=== PATIENT | male | born 1995 | race Caucasian/White ===

== ENCOUNTER 2024-04-17 06:05 | Emergency (ER) | payer BC ==
[~2024-04-17] VITALS: Ht 175.3 cm; Wt 57.8 kg
[2024-04-17] MEDS ORDERED: ALBUTEROL 90 MCG/ACT 8GM HFA INHALER INH ONE (06:25)
[2024-04-17] MEDS ORDERED: UNRESOLVED CLARIFICATION ENTRY XX STA (06:26)
[2024-04-17] MEDS ORDERED: IPRATROPIUM 0.5MG/ALBUTEROL 2.5MG INH SOL UD 3ML (DUONEB) As Ordered ONE (06:29)
[2024-04-17] MEDS: IPRATROPIUM 0.5MG/ALBUTEROL 2.5MG INH SOL UD 3ML (DUONEB) NEB SCH (06:35)
[2024-04-17] MEDS ORDERED: VENTAER INH (07:28)
[2024-04-17] MEDS ORDERED: PRED20TA PO (07:28)
[2024-04-17 07:48] VITALS: BP 112/74; TEMP 96.5; O2SAT 95
== END 2024-04-17 07:50 | disposition home or self-care (01) ==
LOC: M ED 06:05
DX: J45.901 Unspecified asthma with (acute) exacerbation (principal); F17.200 Nicotine dependence, unspecified, uncomplicated; Z79.52 Long term (current) use of systemic steroids